=== PATIENT | male | born 1935 | race Caucasian/White ===

== ENCOUNTER 2017-03-07 12:33 | Emergency (ER) | payer OTHER ==
[~2017-03-07] VITALS: Ht 177.8 cm; Wt 99.8 kg
[2017-03-07 14:27] LABS: Basophils # (auto) 0 uL; Basophils % (auto) 0.3 % (0.0-2.0); DEFINITIVE VIEW TRANSMISSION; Eosinophils # (auto) 0.1 uL; Eosinophils % (auto) 0.5 % (0.0-7.0); Hematocrit 46.8 % (41.0-53.0); Hemoglobin 15.4 g/dL (13.5-17.5); Lymphocytes # (auto) 2.8 uL; Lymphocytes % (auto) 24.2 % (10.0-50.0); Mean Corpuscular Hemoglobin 26.7 pg (28.0-32.0); Mean Corpuscular Hgb Conc. 32.8 g/dL (32.0-36.0); Mean Corpuscular Volume 81.6 fL (80.0-100.0); Mean Platelet Volume 9.6 fL (7.4-10.4); Monocytes # (auto) 0.8 uL; Monocytes % (auto) 6.8 % (0.0-12.0); Neutrophils # (auto) 7.8 uL; Neutrophils % (auto) 68.2 % (37.0-80.0); Platelet Count (auto) 247 10^3/uL (140-450); Red Cell Distribution Width 17.8 % (11.6-16.0); White Blood Cell 11.4 10^3/uL (4.4-10.8)
[2017-03-07 14:50] LABS: Albumin 3.3 g/dL (3.4-5.0); BUN/Creatinine Ratio 19.2; Calcium 9.3 mg/dL (8.5-10.1); Magnesium 2.1 mg/dL (1.6-2.6); Potassium 3.8 mmol/L (3.5-5.1); Total Protein 7.9 g/dL (6.4-8.2)
[2017-03-07] MEDS ORDERED: SODIUM CHLORIDE 0.9% 1,000 ML IV ONE (16:15)
[2017-03-07 17:05] LABS: B-Type Natriuretic Peptide 808.52 pg/mL (0-100); Temperature: 23.1 C (20.0-25.0)
[2017-03-07] MEDS ORDERED: IOHEXOL 350 MG/ML 100ML IJ ONE (17:43)
[2017-03-07] MEDS ORDERED: ENOXAPARIN SOD 100 MG/1 ML SYRINGE SC ONE (17:45)
[2017-03-07] MEDS ORDERED: FUROSEMIDE 40 MG/4 ML VIAL IV ONE (17:45)
[2017-03-07] MEDS ORDERED: LEVOFLOXACIN 500MG 100 ML IV ONE (17:45)
[2017-03-07] MEDS ORDERED: cefTRIAXone 1GM/50ML D5W 50 ML IV ONE (17:45)
[2017-03-07] MEDS ORDERED: ASPirin 81 mg TAB PO ONE (17:45)
[2017-03-07 22:25] VITALS: BP 138/80
== END 2017-03-07 20:10 | disposition short-term general hospital (02) ==
LOC: EDBD 12:33 → ER 12:50
DX: I11.0 Hypertensive heart disease with heart failure (principal); I50.9 Heart failure, unspecified; E11.9 Type 2 diabetes mellitus without complications; R53.1 Weakness; R79.1 Abnormal coagulation profile; J18.9 Pneumonia, unspecified organism; I48.91 Unspecified atrial fibrillation; J45.909 Unspecified asthma, uncomplicated; M25.551 Pain in right hip
CPT/HCPCS: 36415; 71020; 71275; 73502; 80053; 80162; 81002; 82962; 83735; 83880; 84443; 84484; 85025; 85379; 87040; 93970; 96361; 96365; 96372; 96375; 99291; J0696; J1650; J1940; J1956; J7030; Q9967